=== PATIENT | female | born 1975 | race Caucasian/White ===

== ENCOUNTER 2020-12-03 17:42 | Emergency (ER) | payer BC, OTHER ==
[2020-12-03] MEDS ORDERED: Sodium Chloride 0.9% 10 ML Syringe FLUSH PRN (17:57)
[2020-12-03] MEDS ORDERED: Sodium Chloride 0.9% 1,000 ML IV ONE (17:59)
--- NOTE | 2020-12-03 18:05 | EDM.PDOC ---
ED HPI GENERAL MEDICAL PROBLEM - General Chief Complaint: General Stated Complaint: reaction to gummy bear Time Seen by Provider: 12/03/20 17:42 Source of Information: Reports: Patient History Limitations: Reports: No Limitations - History of Present Illness INITIAL COMMENTS - FREE TEXT/NARRATIVE: Emergency department by EMS with concerns of reaction to egg cannabis gummy bear. Patient states that she ordered some gummy bears offline that were to help her with headaches. She states that she took one gummy bear split it into thirds and took the 1 gummy bear throughout the day to help with a headache that she has. Shortly after taking the last third of the gummy bear she started feeling total body heaviness and lightheaded as well as pressure over her chest. By the time the ambulance arrived she states that she was kind of feeling better however she is feeling no pain and her limbs all feel limber. She states that she has never had this feeling for this the first time that she is taking a gummy bear. She has had no issues or concerns in the past. She also states that her headache is now completely gone and she is not no complaints or concerns. Onset: Sudden Duration: Improving Location: Reports: Other Quality: Reports: Other Severity: Mild Improves with: Reports: None Worsens with: Reports: None Associated Symptoms: Reports: No Other Symptoms - Related Data Allergies Allergy/AdvReac Type Severity Reaction Status Date / Time aloe vera Allergy Other Verified 12/03/20 18:23 pistachio nut Allergy Other Verified 12/03/20 18:23 Home Meds: Home Meds . [No Known Home Meds] 12/03/20 [History] ED ROS GENERAL - Review of Systems Review Of Systems: Comprehensive ROS is negative, except as noted in HPI. Constitutional: Reports: No Symptoms HEENT: Reports: No Symptoms Respiratory: Reports: No Symptoms Cardiovascular: Reports: No Symptoms Endocrine: Reports: No Symptoms GI/Abdominal: Reports: No Symptoms : Reports: No Symptoms Musculoskeletal: Reports: No Symptoms Skin: Reports: No Symptoms Neurological: Reports: No Symptoms Psychiatric: Reports: No Symptoms Hematologic/Lymphatic: Reports: No Symptoms Immunologic: Reports: No Symptoms ED EXAM, GENERAL - Physical Exam Exam: See Below Exam Limited By: No Limitations General Appearance: Alert, WD/WN, No Apparent Distress Head: Atraumatic, Normocephalic Neck: Normal Inspection, Supple, Non-Tender, Full Range of Motion Respiratory/Chest: No Respiratory Distress, Lungs Clear, Normal Breath Sounds, No Accessory Muscle Use, Chest Non-Tender Cardiovascular: Normal Peripheral Pulses, Regular Rate, Rhythm, No Rub Extremities: Normal Inspection, Normal Range of Motion, Non-Tender, Normal Capillary Refill Neurological: Alert, Oriented, Normal Gait Psychiatric: Normal Affect, Normal Mood Skin Exam: Warm, Dry, Intact, Normal Color Course - Vital Signs Last Recorded V/S: Last Vital Signs Temp 36.6 C 12/03/20 17:48 Pulse 70 12/03/20 18:59 Resp 16 12/03/20 18:59 BP 117/73 12/03/20 18:59 Pulse Ox 99 12/03/20 18:59 - Orders/Labs/Meds Orders: Active Orders 24 hr Category Date Time Status Sodium Chloride 0.9% [Saline Flush] Med 12/03/20 17:57 Active 10 ml FLUSH ASDIRECTED PRN Peripheral IV Insertion Adult [OM.PC] Stat Oth 12/03/20 17:57 Ordered Medication Orders Sodium Chloride (Sodium Chloride 0.9% 10 Ml Syringe) 10 ml FLUSH ASDIRECTED PRN PRN Reason: Keep Vein Open Meds: Medications Generic Name Dose Route Start Last Admin Trade Name Freq PRN Reason Stop Dose Admin Sodium Chloride 10 ml 12/03/20 17:57 Sodium Chloride 0.9% 10 Ml Syringe FLUSH ASDIRECTED PRN Keep Vein Open Discontinued Medications Generic Name Dose Route Start Last Admin Trade Name Freq PRN Reason Stop Dose Admin Sodium Chloride 1,000 mls @ 999 mls/hr 12/03/20 17:59 12/03/20 17:50 Normal Saline IV 12/03/20 18:59 999 mls/hr ONETIME ONE Administration Departure - Departure Time of Disposition: 19:00 Disposition: Home, Self-Care 01 Condition: Good Clinical Impression: Adverse effect of cannabis, initial encounter - Discharge Information *PRESCRIPTION DRUG MONITORING PROGRAM REVIEWED*: Not Applicable *COPY OF PRESCRIPTION DRUG MONITORING REPORT IN PATIENT WOOD: Not Applicable Instructions: Preventing Marijuana Misuse Referrals: Valerie Gilmore NP [Primary Care Provider] - Forms: ED Department Discharge Additional Instructions: 1. rest 2. increase your water intake 3. Continue all at home medications 4. Activity and diet as tolerated 5. Can take over the counter Tylenol for any pain or discomfort 6. Follow up with PCP if symptoms continue, return, or progress 7. Call with any questions or concerns Sepsis Event Note (ED) - Focused Exam Vital Signs: Vital Signs Temp Pulse Resp BP Pulse Ox 12/03/20 18:59 70 16 117/73 99 12/03/20 17:48 36.6 C 74 18 122/79 100 - My Orders Last 24 Hours: My Active Orders 12/03/20 17:57 Sodium Chloride 0.9% [Saline Flush] 10 ml FLUSH ASDIRECTED PRN Peripheral IV Insertion Adult [OM.PC] Stat - Assessment/Plan Last 24 Hours: My Active Orders 12/03/20 17:57 Sodium Chloride 0.9% [Saline Flush] 10 ml FLUSH ASDIRECTED PRN Peripheral IV Insertion Adult [OM.PC] Stat Assessment:: 1. reaction to CBD gummy bear Plan: 1. EKG completed- sinus rhythm 2. IV initiated in the emergency department 3. IV fluids provided 4. Pain medication given for severe pain and discomfort- patient is not experiencing any pain 5. Zofran given in the ER to help if any nausea arises. pt will let staff know 6. Patient and nursing staff was updated regarding the plan of care 7. Education provided the patient regarding activity, diet, rest, [id number] medication modalities, and follow-up care was provided 8. Patient and family are agreeable to the above plan of care 9. All questions and concerns were addressed with the patient and family prior to discharge
== END 2020-12-03 19:10 | disposition home or self-care (01) ==
LOC: VM.ED 17:42
DX: R51.9 Headache, unspecified (principal); T40.715A Adverse effect of cannabis, initial encounter; Z91.018 Allergy to other foods; Z91.048 Other nonmedicinal substance allergy status
CPT/HCPCS: 93005; 99283; 99284-25; J7030